=== PATIENT | female | born 1960 | race Caucasian/White ===

== ENCOUNTER 2018-07-01 18:16 | Emergency (ER) | payer MEDICAID ==
[~2018-07-01] VITALS: Ht 152.4 cm; Wt 60.8 kg
[2018-07-01 18:18] VITALS: BP 153/82
--- NOTE | 2018-07-01 18:18 | NUR ---
PT BIBA TAKEN TO ER BED 3
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
--- NOTE | 2018-07-01 19:03 | NUR ---
assisted pt to bathroom
[2018-07-01] MEDS ORDERED: CYCLOBENZAPRINE 10 MG TAB PO ONE (19:05)
[2018-07-01] MEDS ORDERED: KETOROLAC 60 MG/2 ML VIAL IM ONE (19:05)
--- NOTE | 2018-07-01 19:38 | NUR ---
PT TO RADIOLOGY VIA [facility] BY [employer].
[2018-07-01 21:06] VITALS: BP 138/84
--- NOTE | 2018-07-01 21:06 | NUR ---
Patient discharged with v/s stable. Written and verbal after care instructions given and explained. Patient alert, oriented and verbalized understanding of instructions. Ambulatory with steady gait. All questions addressed prior to discharge. ID band removed. Patient advised to follow up with PMD. Rx of IBUPROFEN AND FLEXERIL given. Patient educated on indication of medication including possible reaction and side effects. Opportunity to ask questions provided and answered.
== END 2018-07-01 21:06 | disposition home or self-care (01) ==
LOC: MED 18:16
DX: S16.1XXA Strain of muscle, fascia and tendon at neck level, initial encounter (principal); E11.9 Type 2 diabetes mellitus without complications; V89.2XXA Person injured in unspecified motor-vehicle accident, traffic, initial encounter; Y93.89 Activity, other specified; Y92.89 Other specified places as the place of occurrence of the external cause; Y99.8 Other external cause status
CPT/HCPCS: 72050; 96372; 99283; J1885